=== PATIENT | male | born 1950 | race Caucasian/White ===

== ENCOUNTER 2016-08-03 11:18 | Inpatient (IN) | payer OTHER ==
[2016-08-03 11:25] VITALS: BMI 41.8
[2016-08-03] MEDS ORDERED: FOLIC ACID INJECTION - 1 MG, THIAMINE HCL 100 MG, MULTIVIT INJECTION ADULT 10 ML in SOD... IVPB ONE (11:56)
[2016-08-03] MEDS ORDERED: ONDANSETRON 4 MG/2 ML VIAL IVPB ONE (12:00)
--- NOTE | 2016-08-03 12:19 | PDOC ---
Attending Attestation - Resident Resident Name: Farooq Rasmussen - ED Attending Attestation I have performed the following: I have examined & evaluated the patient, The case was reviewed & discussed with the resident, I agree w/resident's findings & plan - HPI HPI: 08/03/16 12:39 66y M hx of afib presents with abd pain/vomiting x 3 weeks. The pts daugther brought the pt to the ED for evaluation - the pt has been drinking daily for the past 3 weeks (home brewed wine), and pt has also been vomiting daily that was clearish/yellowish - without any blood/coffee ground products. Pt also has been feeling sob and generally weak. Daugther noticed his eyes turning yellowish so brought the pt to the ED. Pt complaings of abd pain that worsens when he vomits. denies any cp. pt states he also has stopped taking his meds since hes tarted drinking. on exam pt has a distended abdomen that is nontender , +jaundice, +3pitting edema in the LE without any tenderness, erythema/ induration. history was taken with the assistance of xu as pt speaks stateless PMD dr. Jauregui differential for the pts symtoms includes liver failure secondary to etoh abuse , vs gb disease, pancreatitis, acs, chf/afib will ck labs ekg cxr will reassess 08/03/16 14:16 labs reviewed noted for significant elevation of LFTs and bilirubin RUQ US negative for obstructive disease will obtain CT at this point, unclear reason for the patients elevated bilirubin +AG of 19 --> will obtain serum ketones and vbg, ?alcoholic ketoacidosiss pts guaiac +, will start on protonix - no signs of anemia will discuss with dr jauregui regarding admission - Physicial Exam PE: 08/06/16 09:15 see above - Medical Decision Making 08/06/16 09:15 see above Heart Score/ECG Review - ECG Impressions Comment:: 08/03/16 17:28 Twelve-lead EKG was performed and reviewed by me. There is normal sinus rhythm with a normal rate. rate of 92 incomplete rbbb LAFB
[2016-08-03 12:54] LABS: MCH 29.2 pg (25.7-33.7); MCHC 30.9 g/dl (32.0-35.9); WHITE BLOOD COUNT 7.4 K/mm3 (4.0-10.0)
[2016-08-03] MEDS ORDERED: ONDANSETRON 4 MG/2 ML VIAL ONE (13:04)
[2016-08-03 13:11] LABS: MEAN CELL VOLUME 94.3 fl (80-96); MEAN PLT VOLUME 9.3 fl (7.5-11.1); PLATELET COUNT 116 K/MM3 (134-434); RDW 14.7 % (11.9-15.9)
[2016-08-03 13:15] LABS: INR 1.36 (0.82-1.09)
--- NOTE | 2016-08-03 13:19 | PDOC ---
History of Present Illness <Ryne Ibrahim - Last Filed: 08/03/16 14:23> - General History Source: Patient, Family Exam Limitations: No Limitations - History of Present Illness Travel History: No Initial Comments: 66 yo M h/o a-fib s/p cardioversion (voluntarily stopped eliquis and cardizem 3 months ago) brought in by family member for acute on chronic abd pain and vomiting x 3 months. Per family member, patient has been binge drinking wine ( total 6 gallons in 3 months) and his last drink was in this AM. He has dull pain located in center of abdomen, 5/10, non-radiating, worse with vomiting, associated with loss of appetite and dark stool. The vomiting started with the drinking and it's been bilious and non-bloody. Denies fever, chills, chest pain , sob, dysuria. <Farooq Rasmussen - Last Filed: 08/03/16 15:11> - General Chief Complaint: Pain Stated Complaint: ABD PAIN, Alcohol abuse Time Seen by Provider: 08/03/16 11:41 Past History <Ryne Ibrahim - Last Filed: 08/03/16 14:23> - Past Medical History Anemia: No Asthma: No Cancer: No Cardiac Disorders: Yes (ATRIAL FIBRILLATION) CVA: No COPD: No CHF: Yes Dementia: No Diabetes: No GI Disorders: No Disorders: No HTN: Yes Hypercholesterolemia: Yes Liver Disease: No Seizures: No Thyroid Disease: No Other medical history: alcohol abuse - Surgical History Abdominal Surgery: No Appendectomy: No Cardiac Surgery: No Cholecystectomy: No Lung Surgery: No Neurologic Surgery: No Orthopedic Surgery: No - Psycho/Social/Smoking Cessation Hx Suicidal Ideation: No Smoking History: Never smoked Have you smoked in the past 12 months: No Information on smoking cessation initiated: No Hx Alcohol Use: Yes (daily) Drug/Substance Use Hx: No Substance Use Type: Alcohol Hx Substance Use Treatment: No <Farooq Rasmussen - Last Filed: 08/03/16 15:11> - Past Medical History Allergies/Adverse Reactions: Allergies Allergy/AdvReac Type Severity Reaction Status Date / Time No Known Allergies Allergy Verified 12/29/13 08:24 Home Medications: Ambulatory Orders Unobtainable [Unobtainable] 08/03/16 Review of Systems - Review of Systems Able to Perform ROS?: Yes (with family member bedsid) Is the patient limited Azeri proficient: Yes Constitutional: Yes: Loss of Appetite. No: Chills, Fever, Weakness Respiratory: No: Cough, Shortness of Breath Cardiac (ROS): No: Chest Pain ABD/GI: Yes: Nausea, Poor Appetite, Vomiting, Tarry Stools : No: Dysuria Neurological: Yes: Dizziness <Farooq Rasmussen - Last Filed: 08/03/16 15:11> *Physical Exam - Vital Signs Last Vital Signs Temp Pulse Resp BP Pulse Ox 98.3 F 104 H 19 146/80 97 08/03/16 11:23 08/03/16 11:23 08/03/16 11:23 08/03/16 11:23 08/03/16 11:23 <Ryne Ibrahim - Last Filed: 08/03/16 14:23> - Vital Signs Last Vital Signs Temp Pulse Resp BP Pulse Ox 98.3 F 104 H 19 146/80 97 08/03/16 11:23 08/03/16 11:23 08/03/16 11:23 08/03/16 11:23 08/03/16 11:23 - Physical Exam General Appearance: Yes: Alcohol on Breath. No: Apparent Distress HEENT: positive: Scleral Icterus (R), Scleral Icterus (L), Pharyngeal Erythema Neck: positive: Trachea midline, Supple Respiratory/Chest: positive: Lungs Clear, Normal Breath Sounds Cardiovascular: positive: Regular Rhythm, S1, S2, Tachycardia. negative: Murmur Gastrointestinal/Abdominal: positive: Protuberent, Distended. negative: Guarding, Rebound, Tenderness Musculoskeletal: positive: Other (no tremor) Neurologic: positive: Fully Oriented, Alert, Other (no tremor observed in out strectched hands) <Farooq Rasmussen - Last Filed: 08/03/16 15:11> ED Treatment Course - LABORATORY CBC & Chemistry Diagram: 08/03/16 12:31 08/03/16 12:31 - ADDITIONAL ORDERS Additional order review: Laboratory Results 08/03/16 08/03/16 08/03/16 13:21 12:31 12:31 INR PTT (Actin FS) Sodium Potassium Chloride Carbon Dioxide Anion Gap BUN Creatinine Creat Clearance w eGFR Random Glucose Calcium Phosphorus Magnesium Total Bilirubin Direct Bilirubin AST ALT Alkaline Phosphatase Creatine Kinase Creatine Kinase Index CK-MB (CK-2) CK-MB (CK-2) Rel Index Cancelled Troponin I Total Protein Albumin Lipase Urine Color Urine Appearance Urine pH Ur Specific [place] Urine Protein Urine Glucose (UA) Urine Ketones Urine Blood Urine Nitrite Urine Bilirubin Urine Urobilinogen Ur Leukocyte Esterase Urine RBC Urine WBC Ur Epithelial Cells Hyaline Casts Urine Mucus Stool Occult Blood Positive Alcohol, Quantitative 8.6 H* 08/03/16 08/03/16 08/03/16 12:31 12:31 12:31 INR 1.36 H PTT (Actin FS) Sodium 132 L Potassium 4.9 Chloride 91 L Carbon Dioxide 22 Anion Gap 19 H BUN 8 Creatinine 1.1 Creat Clearance w eGFR > 60 Random Glucose 102 Calcium 8.1 L Phosphorus 1.2 L Magnesium 2.3 Total Bilirubin 18.1 H* Direct Bilirubin 14.1 H* AST 539 H ALT 336 H Alkaline Phosphatase 703 H Creatine Kinase 400 H Creatine Kinase Index 0.9 CK-MB (CK-2) 3.715 H CK-MB (CK-2) Rel Index Troponin I 0.02 Total Protein 5.6 L Albumin 2.1 L Lipase 205 Urine Color Urine Appearance Urine pH Ur Specific [place] Urine Protein Urine Glucose (UA) Urine Ketones Urine Blood Urine Nitrite Urine Bilirubin Urine Urobilinogen Ur Leukocyte Esterase Urine RBC Urine WBC Ur Epithelial Cells Hyaline Casts Urine Mucus Stool Occult Blood Alcohol, Quantitative 08/03/16 08/03/16 12:31 12:31 INR PTT (Actin FS) 33.2 Sodium Potassium Chloride Carbon Dioxide Anion Gap BUN Creatinine Creat Clearance w eGFR Random Glucose Calcium Phosphorus Magnesium Total Bilirubin Direct Bilirubin AST ALT Alkaline Phosphatase Creatine Kinase Creatine Kinase Index CK-MB (CK-2) CK-MB (CK-2) Rel Index Troponin I Total Protein Albumin Lipase Urine Color Yasmine Urine Appearance Clear Urine pH 5.0 Ur Specific [place] 1.030 Urine Protein 2+ H Urine Glucose (UA) 1+ H Urine Ketones 1+ H Urine Blood 1+ H Urine Nitrite Negative Urine Bilirubin 4.0 Urine Urobilinogen 4.0 e.u/dl Ur Leukocyte Esterase Negative Urine RBC 20 Urine WBC 5 Ur Epithelial Cells Rare Hyaline Casts 8 Urine Mucus Many Stool Occult Blood Alcohol, Quantitative 08/03/16 12:31 RBC 4.65 MCV 94.3 MCHC 30.9 L RDW 14.7 MPV 9.3 Neutrophils % Y Lymphocytes % Y - RADIOLOGY Radiology Studies Ordered: Category Date Time Status ABDOMEN & PELVIS CT WITH CONTR [CT] Stat CT Scan 08/03/16 14:11 Ordered CHEST X-RAY PORTABLE* [RAD] Stat Radiology 08/03/16 12:23 Taken ABDOMEN US -LIMITED [US] Stat Ultrasound 08/03/16 12:25 Taken - Medications Given in the ED: ED Medications Discontinued Medications Generic Name Dose Route Start Last Admin Trade Name Juan PRN Reason Stop Dose Admin Ondansetron HCl 4 mg 08/03/16 12:00 08/03/16 13:19 Zofran Injection IVPB 08/03/16 12:01 4 mg ONCE ONE Administration <Ryne Ibrahim - Last Filed: 08/03/16 14:23> - LABORATORY CBC & Chemistry Diagram: 08/03/16 12:31 08/03/16 12:31 - ADDITIONAL ORDERS Additional order review: Laboratory Results 08/03/16 12:31 PTT (Actin FS) 33.2 08/03/16 12:31 RBC 4.65 MCV 94.3 MCHC 30.9 L RDW 14.7 MPV 9.3 Neutrophils % Y Lymphocytes % Y <Farooq Rasmussen - Last Filed: 08/03/16 15:11> Medical Decision Making - Medical Decision Making 08/03/16 13:30 66 yo M h/o a-fib not on AC and rate control admitted to the ED for abd pain and vomiting 2/2 alcohol abuse. Will obtain lab work, stool OB, UA, U/S of liver , lipase 08/03/16 15:09 Lab work is remarkable for positive stool OB, elevated LFT and bilirubins ( direct and total). U/S liver shows fatty infiltrate but no obstruction. Case discussed with Dr. Haney and will admit the patient under his service and requested Dr. Reaves for GI consult. <Farooq Rasmussen - Last Filed: 08/03/16 15:11> *DC/Admit/Observation/Transfer - Discharge Dispostion Admit: Yes <Ryne Ibrahim - Last Filed: 08/03/16 14:23> - Discharge Dispostion Admit: Yes <Farooq Rasmussen - Last Filed: 08/03/16 15:11> Diagnosis at time of Disposition: Elevated bilirubin, Transaminitis GIB (gastrointestinal bleeding) Qualifiers: GI bleed type/associated pathology: melena Qualified Code(s): K92.1 - Melena - Referrals Referrals: Addy Haney MD [Primary Care Provider] -
[2016-08-03 13:24] LABS: ALBUMIN 2.1 g/dl (3.4-5.0); ANION GAP 19 (8-16); CALCIUM 8.1 mg/dL (8.5-10.1); CO2 22 mmol/L (21-32); COCKROFT - GAULT 118.12; CREATININE 1.1 mg/dL (0.7-1.3); GLUCOSE,RANDOM 102 mg/dL (74-106); MAGNESIUM 2.3 mg/dL (1.8-2.4); PHOSPHOROUS 1.2 mg/dL (2.5-4.9); TOT PROT 5.6 g/dl (6.4-8.2)
[2016-08-03 13:32] LABS: ALK PHOS 703 U/L (45-117); TROPONIN I 0.02 ng/ml (0.00-0.05)
[2016-08-03 13:34] LABS: BILIRUBIN,TOTAL 18.1 mg/dL (0.2-1.0)
[2016-08-03 13:35] LABS: SGOT/AST 539 U/L (15-37)
[2016-08-03 13:37] LABS: SGPT/ALT 336 U/L (12-78)
[2016-08-03 13:42] LABS: URINE APPEARANCE CLEAR; URINE COLOR AMBER; URINE GLUCOSE (UA) 1+ (NEGATIVE); URINE KETONE 1+ (NEGATIVE); URINE LEUK ESTERASE NEGATIVE (NEGATIVE); URINE NITRITE NEGATIVE (NEGATIVE); URINE UROBILINOGEN 4.0 E.U/dl E.U./dl (0.2-1.0)
[2016-08-03 13:54] LABS: URINE BLOOD 1+ (NEGATIVE); URINE PROTEIN 2+ (NEGATIVE)
[2016-08-03 13:57] LABS: URINE HYALINE CAST 8 /lpf; URINE MUCUS MANY; URINE RBC 20 /hpf (0-3); URINE WBC 5 /hpf (3-5)
[2016-08-03] MEDS ORDERED: PANTOPRAZOLE SODIUM 80 MG in SODIUM CHLORIDE 100 ML IVPB ONE (14:06)
[2016-08-03] MEDS ORDERED: PANTOPRAZOLE SODIUM 80 MG in SODIUM CHLORIDE 100 ML IVPB SCH (14:15)
[2016-08-03] MEDS ORDERED: PANTOPRAZOLE SODIUM 40 MG VIAL ONE (14:45)
[2016-08-03 14:49] LABS: PLATELET ESTIMATE DECREASED (NORMAL)
[2016-08-03 15:26] LABS: VENOUS BLOOD GAS HCO3 27.7 meq/L (19-25)
[2016-08-03 15:27] LABS: VENOUS PH 7.45 (7.32-7.42)
--- NOTE | 2016-08-03 15:41 | HP ---
Admitting History and Physical - Admission Chief Complaint: 66 y.o M presented to ER [facility] today with c/o abdominal mdistention, dull pain, vomiting and dark stool. According to patient and his daughter he was binge drinking for 4 weeks mostly home made red wine and vodke the last week. He stopped using all his meds 3 weeks ago. History of Present Illness: Paroxysmal Afib, last seen in the office 06/18/15 when he was in [place]. Binge drinking in the past. HTN. LV CHF-mostly diastolic. Obesity. Kidney stones. 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 No: Cancer Hepatobiliary: Yes: Other (Steatohepatitis) Psych: No: Bipolar, Panic, Psychosis, Schizophrenia Musculoskeletal: No: Bursitis Rheumatology: No: Fibromyalgia, Lupus, Rheumatoid Arthritis Endocrine: No: Diabetes Insipidus, Diabetes Mellitus, Hyperparathyroidism Dermatology: No: Basal Cell - Smoking History Smoking history: Never smoked Have you smoked in the past 12 months: No - Alcohol/Substance Use Hx Alcohol Use: Yes (daily) - Social History Usual Living Arrangement: Yes: With Child History of Recent Travel: No Home Medications - Allergies Allergies/Adverse Reactions: Allergies Allergy/AdvReac Type Severity Reaction Status Date / Time No Known Allergies Allergy Verified 12/29/13 08:24 - Home Medications Home Medications: Ambulatory Orders Unobtainable [Unobtainable] 08/03/16 Home Medications (free text): Cardizem 180 QD. Lasix 40 mg QD. KDur 20 Meq QD. Toprol XL 25 mg QD. Pravastatin 10 mg QD. Eliquis 5 mg BID Family Disease History - Family Disease History Family History: Unremarkable Other Family History: from liver illness and ETOH Review of Systems - Review of Systems Constitutional: reports: Loss of Appetite, Malaise. denies: Fever, Lethargy Eyes: denies: Blind Spots, Double Vision, Eye Pain HENT: denies: Difficult Swallowing, Epistaxis, Nasal Congestion Neck: denies: Lumps, Pain on Movement, Stiffness Cardiovascular: reports: Edema, Shortness of Breath. denies: Chest Pain, Palpitations Respiratory: reports: Exercise Intolerance, Snoring. denies: Cough, Wheezing Gastrointestinal: reports: Abdominal Pain, Bloating, Melena, Vomiting Genitourinary: denies: Discharge, Dysuria, Hematuria Breasts: reports: No Symptoms Reported Musculoskeletal: denies: Decreased ROM, Joint Pain Integumentary: reports: No Symptoms, Other (Jaundice) Neurological: reports: No Symptoms. denies: Change in LOC, Change in Speech, Confusion Endocrine: denies: Excessive Sweating, Flushing Hematology/Lymphatic: reports: No Symptoms Psychiatric: reports: No Symptoms Physical Examination Vital Signs: Vital Signs Temperature 98.3 F 08/03/16 11:23 Pulse Rate 104 H 08/03/16 11:23 Respiratory Rate 19 08/03/16 11:23 Blood Pressure 146/80 08/03/16 11:23 O2 Sat by Pulse Oximetry (%) 97 08/03/16 11:23 Constitutional: Yes: Anxious, Mild Distress Eyes: Yes: Sclera Icterus, Tearing HENT: Yes: Atraumatic, Normocephalic. No: Drooling, Epistaxis Neck: Yes: Supple, Trachea Midline. No: Decreased ROM, Lymphadenopathy, Tenderness, Thyromegaly Cardiovascular: Yes: Regular Rate and Rhythm, Tachycardia, S1, S2. No: JVD, Murmur, Rub Respiratory: Yes: Regular, CTA Bilaterally Gastrointestinal: Yes: Normal Bowel Sounds, Soft, Abdomen, Obese, Hepatomegaly. No: Ascites ...Rectal Exam: Yes: Other ( PER ER Guaiac positive) Renal/: No: Anuria, Bladder Distention Breast(s): Yes: WNL, Left, Right Musculoskeletal: No: Joint Stiffness, Joint Swelling Extremities: No: Amputation, Calf Tenderness, Cold, Cyanosis Edema: Yes Edema: LLE: Trace, RLE: Trace Integumentary: Yes: WNL Neurological: Yes: Alert, Oriented, Cran Nerves II-XII Intact. No: Aphasia, Asterixis, Ataxia, Dysarthria, Seizure ...Motor Strength: WNL Psychiatric: Yes: WNL. No: Agitated, Suicidal Ideation Imaging - Results Chest X-ray: Report Reviewed Cat Scan: Image Reviewed (with Dr Antonio) EKG: Image Reviewed Problem List - Problems (1) GIB (gastrointestinal bleeding) Assessment/Plan: R/O PUD, R/o gastropathy, r/o varices. Protonix IV GI consult Code(s): K92.2 - GASTROINTESTINAL HEMORRHAGE, UNSPECIFIED Qualifiers: GI bleed type/associated pathology: melena Qualified Code(s): K92.1 - Melena (2) Acute alcoholic hepatitis Assessment/Plan: Elevated AST >>ALT=1.5-2:1 Low PLTS Elevated INR Direct Bili R/o superimposed viral hepatitis or other ethiologies. Code(s): K70.10 - ALCOHOLIC HEPATITIS WITHOUT ASCITES (3) Paroxysmal atrial fibrillation Assessment/Plan: Hold OFF on A/C now due to GI bleed BAB for rate control Code(s): I48.0 - PAROXYSMAL ATRIAL FIBRILLATION (4) CHF (congestive heart failure), NYHA class II Assessment/Plan: ECHO Follow weights O2NC Will hold off on diuretics now Code(s): I50.9 - HEART FAILURE, UNSPECIFIED Qualifiers: Congestive heart failure type: diastolic (5) Alcohol abuse Assessment/Plan: Thiamin ,B6, observe for DT , Code(s): F10.10 - ALCOHOL ABUSE, UNCOMPLICATED
[2016-08-03] MEDS ORDERED: chlordiazePOXIDE HCL 25 MG CAPSULE PO SCH (17:00)
[2016-08-03] MEDS: DEXTROSE 5%-1/3 NS - 500 ML IV SCH (17:29)
--- NOTE | 2016-08-03 18:29 | CON.GI ---
Consult Consult Specialty:: GI Referred by:: Dr. 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 He had multiple episodes of vomiting and he has been "drinking non stop for the last 3 weeks". He drinks wine and mentions 5 gallons of it, but does not give me the time frame in which he drank them. He gives a binge drinking history from at least 2007 when his from alcohol abuse complications. Hi sister from alcoholic complications as well. He currently denies abdominal pain. He was noted to have marked liver chemistry abnormalities. His liver was normal in size on the CT scan however fatty liver was noted with normal appearing bile ducts. Abd US revealed hepatomegaly and fatty liver with normal appearing bile ducts. Patient guaiac negative from specimen sent from ER however no melena reported in ER or at home. 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 No: Cancer Hepatobiliary: Yes: Other (Steatohepatitis) Psych: Yes: Addictions (alcohol). No: Bipolar, Panic, Psychosis, Schizophrenia Musculoskeletal: No: Bursitis Rheumatology: No: Fibromyalgia, Lupus, Rheumatoid Arthritis Endocrine: No: Diabetes Insipidus, Diabetes Mellitus, Hyperparathyroidism Dermatology: No: Basal Cell - Past Surgical History Additional Surgical History: "heart surgery 2012" - Alcohol/Substance Use Hx Alcohol Use: Yes (daily) History of Substance Use: reports: None Date of Last Use: 08/02/16 - Smoking History Smoking history: Never smoked Have you smoked in the past 12 months: No - Social History History of Recent Travel: No Home Medications - Allergies Allergies/Adverse Reactions: Allergies Allergy/AdvReac Type Severity Reaction Status Date / Time No Known Allergies Allergy Verified 12/29/13 08:24 - Home Medications Home Medications: Ambulatory Orders Unobtainable [Unobtainable] 08/03/16 Family Disease History - Family Disease History Family Disease History: Other: Father ( 72: throat cancer), Mother ( 83 CVA), Brother (Alive: healthy), Sister ( 55: alcoholic liver disease), Daughter (healthy) Review of Systems - Review of Systems Constitutional: denies: Chills, Fever, Unintentional Wgt. Loss Cardiovascular: denies: Chest Pain Respiratory: denies: SOB Gastrointestinal: reports: Abdominal Pain. denies: Constipation, Diarrhea, Melena, Rectal Bleeding Physical Exam-GI Vital Signs: Vital Signs Temperature 98 F 08/03/16 16:39 Pulse Rate 87 08/03/16 16:39 Respiratory Rate 20 08/03/16 16:39 Blood Pressure 131/69 08/03/16 16:39 O2 Sat by Pulse Oximetry (%) 94 L 08/03/16 16:39 Constitutional: Yes: Calm Eyes: Yes: Sclera Icterus Cardiovascular: Yes: Regular Rate and Rhythm. No: Murmur Respiratory: Yes: CTA Bilaterally Gastrointestinal Inspection: No: Distention, Scars ...Auscultate: Yes: Normoactive Bowel Sounds ...Palpate: Yes: Hepatomegaly (body habitus makes assessment of hepatomegaly difficult). No: Tenderness ...Percussion: No: Tympanitic ...Rectal Exam: Yes: Other (light parikh stool, no blood/melena 2+ prostate) Edema: Yes Edema: LLE: 1+, RLE: 1+ Neurological: Yes: Alert, Oriented. No: Asterixis Labs: INR, PTT INR 1.36 (0.82-1.09) H 08/03/16 12:31 CBC, BMP 08/03/16 12:31 08/03/16 12:31 Hepatic Panel Total Bilirubin 18.1 mg/dL (0.2-1.0) H* 08/03/16 12:31 Direct Bilirubin 14.1 mg/dL (0.0-0.2) H* 08/03/16 12:31 AST 539 U/L (15-37) H 08/03/16 12:31 ALT 336 U/L (12-78) H 08/03/16 12:31 Alkaline Phosphatase 703 U/L (45-117) H 08/03/16 12:31 Albumin 2.1 g/dl (3.4-5.0) L 08/03/16 12:31 Laboratory Tests 08/03/16 12:31 Alcohol, Quantitative 8.6 H* Imaging - Results Cat Scan: Report Reviewed, Image Reviewed Ultrasound: Report Reviewed Problem List - Problems (1) Acute alcoholic hepatitis Assessment/Plan: Suspected alcoholic hepatitis. No recent LFT's to compare Hepatic discriminant function: 32. On the cusp in terms of prednisone therapy and will exclude alternate etiologies of his abdominal pain and LFT abnormality. Ordered MRCP, hepatitis A/B/C serologies Keep NPO after midnight except meds. I explained to Mr. Del Real that if there is enough suspicion for a stone lodged in his bile duct that he may need ERCP to extract it Withdrawal and aspiration precautions Monitor daily LFTs I stressed the need for complete alcohol abstinence Code(s): K70.10 - ALCOHOLIC HEPATITIS WITHOUT ASCITES
[2016-08-03 20:46] LABS: MCH 29.7 pg (25.7-33.7); MCHC 31.4 g/dl (32.0-35.9); MEAN CELL VOLUME 94.4 fl (80-96); MEAN PLT VOLUME 9.4 fl (7.5-11.1); PLATELET COUNT 118 K/MM3 (134-434); RDW 14.7 % (11.9-15.9); WHITE BLOOD COUNT 6.5 K/mm3 (4.0-10.0)
[2016-08-03 20:59] LABS: INR 1.36 (0.82-1.09)
[2016-08-03] MEDS: METOPROLOL TARTRATE 25 MG TABLET (FP) PO SCH (21:45)
[2016-08-04] MEDS: DEXTROSE 5%-1/3 NS - 500 ML IV SCH ×2 (05:54→11:19)
--- NOTE | 2016-08-04 07:08 | PN ---
Progress Note, Physician Chief Complaint: Awake, alert, no withdrawal symptoms, no vomiting. Burning on urination, dark urine. BM dark Abdominal dyscofort. GI consult noted. Advised MRCP. Given borderline hepatic discriminant-no steroids started. History of Present Illness: Paroxysmal Afib, last seen in the office 06/18/15 when he was in [place]. Binge drinking in the past. HTN. LV CHF-mostly diastolic. Obesity. Kidney stones. - Current Medication List Current Medications: Active Medications Dextrose/Sodium Chloride (D5-1/3ns -) 500 mls @ 42 mls/hr IV ASDIR [facility] Last Admin: 08/04/16 05:54 Dose: 42 mls/hr Metoprolol Tartrate (Lopressor -) 25 mg PO BID [facility] Last Admin: 08/03/16 21:45 Dose: 25 mg - Objective Vital Signs: Vital Signs Temperature 98.7 F 08/04/16 06:00 Pulse Rate 82 08/04/16 06:00 Respiratory Rate 20 08/04/16 06:00 Blood Pressure 126/77 08/04/16 06:00 O2 Sat by Pulse Oximetry (%) 96 08/03/16 21:00 Constitutional: Yes: Anxious, Moderate Distress Eyes: Yes: Sclera Icterus, Tearing HENT: Yes: Normocephalic. No: Drooling, Epistaxis Neck: Yes: Trachea Midline. No: Decreased ROM, Lymphadenopathy, Rigid, Tenderness, Thyromegaly Cardiovascular: Yes: Regular Rate and Rhythm, S1, S2. No: Bradycardia, Bruit, JVD, Gallop, Rub Respiratory: Yes: Regular, CTA Bilaterally Gastrointestinal: Yes: Soft, Abdomen, Obese, Tenderness. No: Ascites, Palpable Mass ...Rectal Exam: Yes: Deferred Genitourinary: No: Anuria, Bladder Distention, CVA Tenderness - Left, CVA Tenderness - Right Breast(s): Yes: WNL Extremities: Yes: WNL Edema: LLE: Trace, RLE: Trace Integumentary: Yes: WNL Neurological: Yes: Alert, Oriented. No: Aphasia, Asterixis, Confusion, Dysarthria ...Motor Strength: WNL Psychiatric: Yes: WNL Labs: CBC, BMP 08/03/16 20:00 INR, PTT INR 1.36 (0.82-1.09) H 08/03/16 20:00 Laboratory Results - last 24 hr 08/03/16 08/03/16 08/03/16 12:31 12:31 12:31 WBC 7.4 RBC 4.65 Hgb 13.6 Hct 43.9 MCV 94.3 MCHC 30.9 L RDW 14.7 Plt Count 116 L MPV 9.3 Neutrophils % 82.0 Lymphocytes % 10.0 Monocytes % 7.0 Promyelocytes 1 Differential Comment Manual diff done Platelet Estimate Decreased INR PTT (Actin FS) 33.2 VBG pH POC VBG pCO2 POC VBG pO2 Mixed VBG HCO3 Sodium Potassium Chloride Carbon Dioxide Anion Gap BUN Creatinine Creat Clearance w eGFR Random Glucose Calcium Phosphorus Magnesium Total Bilirubin Direct Bilirubin AST ALT Alkaline Phosphatase Creatine Kinase Creatine Kinase Index CK-MB (CK-2) CK-MB (CK-2) Rel Index Troponin I Total Protein Albumin Lipase Vitamin B12 Serum Folate Urine Color Yasmine Urine Appearance Clear Urine pH 5.0 Ur Specific [place] 1.030 Urine Protein 2+ H Urine Glucose (UA) 1+ H Urine Ketones 1+ H Urine Blood 1+ H Urine Nitrite Negative Urine Bilirubin 4.0 Urine Urobilinogen 4.0 e.u/dl Ur Leukocyte Esterase Negative Urine RBC 20 Urine WBC 5 Ur Epithelial Cells Rare Hyaline Casts 8 Urine Mucus Many Stool Occult Blood Alcohol, Quantitative Acetone, Qual 08/03/16 08/03/16 08/03/16 12:31 12:31 12:31 WBC RBC Hgb Hct MCV MCHC RDW Plt Count MPV Neutrophils % Lymphocytes % Monocytes % Promyelocytes Differential Comment Platelet Estimate INR 1.36 H PTT (Actin FS) VBG pH POC VBG pCO2 POC VBG pO2 Mixed VBG HCO3 Sodium 132 L Potassium 4.9 Chloride 91 L Carbon Dioxide 22 Anion Gap 19 H BUN 8 Creatinine 1.1 Creat Clearance w eGFR > 60 Random Glucose 102 Calcium 8.1 L Phosphorus 1.2 L Magnesium 2.3 Total Bilirubin 18.1 H* Direct Bilirubin 14.1 H* AST 539 H ALT 336 H Alkaline Phosphatase 703 H Creatine Kinase 400 H Creatine Kinase Index 0.9 CK-MB (CK-2) 3.715 H CK-MB (CK-2) Rel Index Troponin I 0.02 Total Protein 5.6 L Albumin 2.1 L Lipase 205 Vitamin B12 Serum Folate Urine Color Urine Appearance Urine pH Ur Specific [place] Urine Protein Urine Glucose (UA) Urine Ketones Urine Blood Urine Nitrite Urine Bilirubin Urine Urobilinogen Ur Leukocyte Esterase Urine RBC Urine WBC Ur Epithelial Cells Hyaline Casts Urine Mucus Stool Occult Blood Alcohol, Quantitative Acetone, Qual 08/03/16 08/03/16 08/03/16 12:31 12:31 12:45 WBC RBC Hgb Hct MCV MCHC RDW Plt Count MPV Neutrophils % Lymphocytes % Monocytes % Promyelocytes Differential Comment Platelet Estimate INR PTT (Actin FS) VBG pH POC VBG pCO2 POC VBG pO2 Mixed VBG HCO3 Sodium Potassium Chloride Carbon Dioxide Anion Gap BUN Creatinine Creat Clearance w eGFR Random Glucose Calcium Phosphorus Magnesium Total Bilirubin Direct Bilirubin AST ALT Alkaline Phosphatase Creatine Kinase Creatine Kinase Index CK-MB (CK-2) CK-MB (CK-2) Rel Index Cancelled Troponin I Total Protein Albumin Lipase Vitamin B12 1075 H Serum Folate 8 Urine Color Urine Appearance Urine pH Ur Specific [place] Urine Protein Urine Glucose (UA) Urine Ketones Urine Blood Urine Nitrite Urine Bilirubin Urine Urobilinogen Ur Leukocyte Esterase Urine RBC Urine WBC Ur Epithelial Cells Hyaline Casts Urine Mucus Stool Occult Blood Alcohol, Quantitative 8.6 H* Acetone, Qual 08/03/16 08/03/16 08/03/16 13:21 14:55 15:15 WBC RBC Hgb Hct MCV MCHC RDW Plt Count MPV Neutrophils % Lymphocytes % Monocytes % Promyelocytes Differential Comment Platelet Estimate INR PTT (Actin FS) VBG pH 7.45 H POC VBG pCO2 40.1 POC VBG pO2 43.3 Mixed VBG HCO3 27.7 H Sodium Potassium Chloride Carbon Dioxide Anion Gap BUN Creatinine Creat Clearance w eGFR Random Glucose Calcium Phosphorus Magnesium Total Bilirubin Direct Bilirubin AST ALT Alkaline Phosphatase Creatine Kinase Creatine Kinase Index CK-MB (CK-2) CK-MB (CK-2) Rel Index Troponin I Total Protein Albumin Lipase Vitamin B12 Serum Folate Urine Color Urine Appearance Urine pH Ur Specific [place] Urine Protein Urine Glucose (UA) Urine Ketones Urine Blood Urine Nitrite Urine Bilirubin Urine Urobilinogen Ur Leukocyte Esterase Urine RBC Urine WBC Ur Epithelial Cells Hyaline Casts Urine Mucus Stool Occult Blood Positive Alcohol, Quantitative Acetone, Qual Negative 08/03/16 08/03/16 20:00 20:00 WBC 6.5 RBC 4.07 Hgb 12.1 D Hct 38.4 MCV 94.4 MCHC 31.4 L RDW 14.7 Plt Count 118 L MPV 9.4 Neutrophils % Lymphocytes % Monocytes % Promyelocytes Differential Comment Platelet Estimate INR 1.36 H PTT (Actin FS) VBG pH POC VBG pCO2 POC VBG pO2 Mixed VBG HCO3 Sodium Potassium Chloride Carbon Dioxide Anion Gap BUN Creatinine Creat Clearance w eGFR Random Glucose Calcium Phosphorus Magnesium Total Bilirubin Direct Bilirubin AST ALT Alkaline Phosphatase Creatine Kinase Creatine Kinase Index CK-MB (CK-2) CK-MB (CK-2) Rel Index Troponin I Total Protein Albumin Lipase Vitamin B12 Serum Folate Urine Color Urine Appearance Urine pH Ur Specific [place] Urine Protein Urine Glucose (UA) Urine Ketones Urine Blood Urine Nitrite Urine Bilirubin Urine Urobilinogen Ur Leukocyte Esterase Urine RBC Urine WBC Ur Epithelial Cells Hyaline Casts Urine Mucus Stool Occult Blood Alcohol, Quantitative Acetone, Qual - ....Imaging Chest X-ray: Report Reviewed Cat Scan: Image Reviewed EKG: Image Reviewed Problem List - Problems (1) GIB (gastrointestinal bleeding) Assessment/Plan: Acute GI bleed R/O PUD, R/o gastropathy, r/o varices. Protonix IV GI consult Code(s): K92.2 - GASTROINTESTINAL HEMORRHAGE, UNSPECIFIED Qualifiers: GI bleed type/associated pathology: melena Qualified Code(s): K92.1 - Melena (2) Acute alcoholic hepatitis Assessment/Plan: Elevated AST >>ALT=1.5-2:1 Low PLTS Elevated INR Direct Bili R/o superimposed viral hepatitis or other ethiologies. R/o mechanical jaundice NPO MRCP Code(s): K70.10 - ALCOHOLIC HEPATITIS WITHOUT ASCITES (3) Paroxysmal atrial fibrillation Assessment/Plan: Hold OFF on A/C now due to GI bleed BAB for rate control Code(s): I48.0 - PAROXYSMAL ATRIAL FIBRILLATION (4) CHF (congestive heart failure), NYHA class II Assessment/Plan: ECHO Follow weights O2NC Will hold off on diuretics now Code(s): I50.9 - HEART FAILURE, UNSPECIFIED Qualifiers: Congestive heart failure type: diastolic (5) Alcohol abuse Assessment/Plan: Thiamin ,B6, observe for DT , Code(s): F10.10 - ALCOHOL ABUSE, UNCOMPLICATED
[2016-08-04 08:06] LABS: BILIRUBIN,TOTAL 13.2 mg/dL (0.2-1.0)
[2016-08-04 09:31] LABS: BILIRUBIN,DIRECT 10.6 mg/dL (0.0-0.2)
[2016-08-04 09:32] LABS: MCH 29.6 pg (25.7-33.7); MCHC 31.5 g/dl (32.0-35.9); MEAN PLT VOLUME 8.6 fl (7.5-11.1); PLATELET COUNT 122 K/MM3 (134-434); RDW 14.6 % (11.9-15.9); WHITE BLOOD COUNT 6.1 K/mm3 (4.0-10.0)
[2016-08-04 09:59] LABS: ANION GAP 10 (8-16); BILIRUBIN,TOTAL 12.9 mg/dL (0.2-1.0); CALCIUM 7.7 mg/dL (8.5-10.1); CO2 30 mmol/L (21-32); COCKROFT - GAULT 144.37; CREATININE 0.9 mg/dL (0.7-1.3); GLUCOSE,RANDOM 110 mg/dL (74-106); SGPT/ALT 252 U/L (12-78)
[2016-08-04 10:00] LABS: ALK PHOS 543 U/L (45-117)
[2016-08-04 10:13] LABS: MAGNESIUM 2.4 mg/dL (1.8-2.4); SGOT/AST 333 U/L (15-37)
[2016-08-04] MEDS: METOPROLOL TARTRATE 25 MG TABLET (FP) PO SCH ×2 (11:19→21:58)
[2016-08-04 11:54] LABS: URINE APPEARANCE CLEAR; URINE COLOR AMBER; URINE GLUCOSE (UA) NEGATIVE (NEGATIVE); URINE KETONE TRACE (NEGATIVE); URINE LEUK ESTERASE NEGATIVE (NEGATIVE); URINE NITRITE NEGATIVE (NEGATIVE); URINE UROBILINOGEN 4.0 E.U/dl E.U./dl (0.2-1.0)
[2016-08-04 12:19] LABS: PLATELET ESTIMATE DECREASED (NORMAL)
[2016-08-04 12:28] LABS: URINE BLOOD 1+ (NEGATIVE); URINE PROTEIN 1+ (NEGATIVE)
[2016-08-04 12:37] LABS: URINE BACTERIA RARE /hpf (NONE SEEN); URINE MUCUS RARE; URINE RBC 1 /hpf (0-3); URINE WBC 1 /hpf (3-5)
[2016-08-04] MEDS ORDERED: POTASSIUM PHOSPHATE 30 MM in DEXTROSE 5%-WATER - 500 ML IVPB ONE (14:00)
[2016-08-04] MEDS: HYDROmorphone HCL CARPU-JECT 1 MG/1 ML DISP.SYRIN IVPB PRN ×2 (14:52→22:18)
[2016-08-04 18:32] LABS: INR 1.28 (0.82-1.09); PROTHROMBIN TIME (PATIENT) 14.1 SEC (9.98-11.88)
--- NOTE | 2016-08-04 19:09 | PN ---
GI Progress Note Subjective: No acute events No abdominal pain/vomiting Does not fit in MRI machine States having some pain in LLQ - Objective Vital Signs: Vital Signs Temperature 97.7 F 08/04/16 18:00 Pulse Rate 88 08/04/16 18:00 Respiratory Rate 20 08/04/16 18:00 Blood Pressure 145/89 08/04/16 18:00 O2 Sat by Pulse Oximetry (%) 96 08/04/16 09:00 Constitutional: Calm Eyes: Yes: Sclera Icterus Cardiovascular: Yes: Regular Rate and Rhythm. No: Murmur Respiratory: Yes: CTA Bilaterally Gastrointestinal Inspection: No: Distention ...Auscultate: Yes: Normoactive Bowel Sounds Edema: Yes Neurological: Yes: Alert. No: Asterixis Psychiatric: No: Agitated Labs: CBC, BMP 08/04/16 09:15 08/04/16 09:15 INR, PTT INR 1.28 (0.82-1.09) H 08/04/16 18:11 Hepatic Panel Total Bilirubin 12.9 mg/dL (0.2-1.0) H 08/04/16 09:15 Direct Bilirubin 10.6 mg/dL (0.0-0.2) H* 08/04/16 06:00 AST 333 U/L (15-37) H 08/04/16 09:15 ALT 252 U/L (12-78) H 08/04/16 09:15 Alkaline Phosphatase 543 U/L (45-117) H 08/04/16 09:15 Albumin 2.0 g/dl (3.4-5.0) L 08/04/16 09:15 Problem List - Problems (1) Acute alcoholic hepatitis Assessment/Plan: Some improvement on today's labs Monitor LFT's / coags Advancing diet MRCP not feasible. Given lack of dilated biliary tract with markedly elevated bilirubin less likely biliary obstruction. Alc hep fitting clinical picture Code(s): K70.10 - ALCOHOLIC HEPATITIS WITHOUT ASCITES
[2016-08-05] MEDS: DEXTROSE 5%-1/3 NS - 500 ML IV SCH ×2 (06:43→22:02)
[2016-08-05 07:41] LABS: MCH 30.3 pg (25.7-33.7); MCHC 31.9 g/dl (32.0-35.9); MEAN CELL VOLUME 94.9 fl (80-96); MEAN PLT VOLUME 8.4 fl (7.5-11.1); PLATELET COUNT 152 K/MM3 (134-434); RDW 15.3 % (11.9-15.9); WHITE BLOOD COUNT 5.8 K/mm3 (4.0-10.0)
--- NOTE | 2016-08-05 07:56 | PN ---
Progress Note, Physician Chief Complaint: C/o left low back pain. History of Present Illness: Paroxysmal Afib, last seen in the office 06/18/15 when he was in [place]. Binge drinking in the past. HTN. LV CHF-mostly diastolic. Obesity. Kidney stones. - Current Medication List Current Medications: Active Medications Hydromorphone HCl (Dilaudid Injection -) 0.5 mg IVPB Q6H PRN PRN Reason: PAIN LEVEL GREATER THAN 5 Last Admin: 08/04/16 22:18 Dose: 0.5 mg Dextrose/Sodium Chloride (D5-1/3ns -) 500 mls @ 100 mls/hr IV ASDIR [facility] Last Admin: 08/05/16 06:43 Dose: 100 mls/hr Metoprolol Tartrate (Lopressor -) 25 mg PO BID [facility] Last Admin: 08/04/16 21:58 Dose: Not Given - Objective Vital Signs: Vital Signs Temperature 97.4 F L 08/05/16 05:39 Pulse Rate 92 H 08/05/16 05:39 Respiratory Rate 20 08/05/16 05:39 Blood Pressure 119/48 08/05/16 05:39 O2 Sat by Pulse Oximetry (%) 96 08/04/16 21:00 Constitutional: Yes: Anxious, Moderate Distress Eyes: Yes: Sclera Icterus HENT: Yes: Normocephalic. No: Drooling Neck: Yes: Supple, Trachea Midline Cardiovascular: Yes: Regular Rate and Rhythm, Other. No: Bradycardia, Tachycardia Respiratory: Yes: Regular Gastrointestinal: Yes: Normal Bowel Sounds, Soft, Abdomen, Obese. No: Ascites, Pulsatile Mass, Tenderness ...Rectal Exam: Yes: Deferred Genitourinary: No: Anuria, Bladder Distention Breast(s): Yes: WNL Musculoskeletal: Yes: WNL Extremities: Yes: WNL Edema: No Integumentary: Yes: WNL Neurological: Yes: Alert, Oriented ...Motor Strength: WNL Psychiatric: Yes: WNL Labs: INR, PTT INR 1.28 (0.82-1.09) H 08/04/16 18:11 Laboratory Results - last 24 hr 08/03/16 08/04/16 08/04/16 12:45 06:00 09:15 WBC 6.1 RBC 4.21 Hgb 12.5 Hct 39.5 MCV 94.0 MCHC 31.5 L RDW 14.6 Plt Count 122 L MPV 8.6 Neutrophils % 78.0 Lymphocytes % 13.0 D Monocytes % 7.0 Basophils % 1.0 Myelocytes 1 Differential Comment Manual diff done Platelet Estimate Decreased INR Sodium Potassium Chloride Carbon Dioxide Anion Gap BUN Creatinine Creat Clearance w eGFR Random Glucose Hemoglobin A1c % Calcium Magnesium Total Bilirubin 13.2 H D Direct Bilirubin 10.6 H* AST 342 H D ALT 258 H D Alkaline Phosphatase 555 H D Total Protein 5.0 L Albumin 2.0 L Urine Color Urine Appearance Urine pH Ur Specific [place] Urine Protein Urine Glucose (UA) Urine Ketones Urine Blood Urine Nitrite Urine Bilirubin Urine Urobilinogen Ur Leukocyte Esterase Urine RBC Urine WBC Ur Epithelial Cells Urine Bacteria Urine Mucus Hepatitis C Antibody <0.1 08/04/16 08/04/16 08/04/16 09:15 09:15 11:00 WBC RBC Hgb Hct MCV MCHC RDW Plt Count MPV Neutrophils % Lymphocytes % Monocytes % Basophils % Myelocytes Differential Comment Platelet Estimate INR Sodium 136 Potassium 3.3 L D Chloride 96 L Carbon Dioxide 30 D Anion Gap 10 BUN 5 L D Creatinine 0.9 Creat Clearance w eGFR > 60 Random Glucose 110 H Hemoglobin A1c % 5.9 Calcium 7.7 L Magnesium 2.4 Total Bilirubin 12.9 H Direct Bilirubin AST 333 H ALT 252 H Alkaline Phosphatase 543 H Total Protein 5.0 L Albumin 2.0 L Urine Color Yasmine Urine Appearance Clear Urine pH 7.0 D Ur Specific [place] 1.016 Urine Protein 1+ H Urine Glucose (UA) Negative Urine Ketones Trace H Urine Blood 1+ H Urine Nitrite Negative Urine Bilirubin 4.0 Urine Urobilinogen 4.0 e.u/dl Ur Leukocyte Esterase Negative Urine RBC 1 Urine WBC 1 Ur Epithelial Cells Rare Urine Bacteria Rare Urine Mucus Rare Hepatitis C Antibody 08/04/16 18:11 WBC RBC Hgb Hct MCV MCHC RDW Plt Count MPV Neutrophils % Lymphocytes % Monocytes % Basophils % Myelocytes Differential Comment Platelet Estimate INR 1.28 H Sodium Potassium Chloride Carbon Dioxide Anion Gap BUN Creatinine Creat Clearance w eGFR Random Glucose Hemoglobin A1c % Calcium Magnesium Total Bilirubin Direct Bilirubin AST ALT Alkaline Phosphatase Total Protein Albumin Urine Color Urine Appearance Urine pH Ur Specific [place] Urine Protein Urine Glucose (UA) Urine Ketones Urine Blood Urine Nitrite Urine Bilirubin Urine Urobilinogen Ur Leukocyte Esterase Urine RBC Urine WBC Ur Epithelial Cells Urine Bacteria Urine Mucus Hepatitis C Antibody Problem List - Problems (1) GIB (gastrointestinal bleeding) Assessment/Plan: Follow CBC, GI f/u Code(s): K92.2 - GASTROINTESTINAL HEMORRHAGE, UNSPECIFIED Qualifiers: GI bleed type/associated pathology: melena Qualified Code(s): K92.1 - Melena (2) Acute alcoholic hepatitis Assessment/Plan: MRI not technically feasable LFT improving Hep studies negative Code(s): K70.10 - ALCOHOLIC HEPATITIS WITHOUT ASCITES (3) Paroxysmal atrial fibrillation Assessment/Plan: Hold OFF on A/C now due to GI bleed BAB for rate control Code(s): I48.0 - PAROXYSMAL ATRIAL FIBRILLATION (4) CHF (congestive heart failure), NYHA class II Assessment/Plan: ECHO noted-normal LV systolic fx. LAE. Mild O2NC Will hold off on diuretics now Code(s): I50.9 - HEART FAILURE, UNSPECIFIED Qualifiers: Congestive heart failure type: diastolic (5) Alcohol abuse Assessment/Plan: Thiamin ,B6, observe for DT , Code(s): F10.10 - ALCOHOL ABUSE, UNCOMPLICATED (6) Low back pain Assessment/Plan: R/O kidney stone. PT for low back pain Pain meds PRN. Code(s): M54.5 - LOW BACK PAIN Qualifiers: Chronicity: unspecified Back pain laterality: left
[2016-08-05] MEDS ORDERED: HYDROmorphone HCL CARPU-JECT 1 MG/1 ML DISP.SYRIN IVPB PRN (07:59)
[2016-08-05] MEDS ORDERED: POTASSIUM PHOSPHATE 30 MM in SODIUM CHLORIDE 250 ML IVPB ONE (08:01)
[2016-08-05 08:47] LABS: ALBUMIN 1.9 g/dl (3.4-5.0); ALK PHOS 493 U/L (45-117); ANION GAP 13 (8-16); BILIRUBIN,TOTAL 13.2 mg/dL (0.2-1.0); CALCIUM 8.1 mg/dL (8.5-10.1); CO2 30 mmol/L (21-32); COCKROFT - GAULT 144.37; CREATININE 0.9 mg/dL (0.7-1.3); GLUCOSE,RANDOM 103 mg/dL (74-106); SGPT/ALT 217 U/L (12-78)
[2016-08-05] MEDS: METOPROLOL TARTRATE 25 MG TABLET (FP) PO SCH ×2 (09:23→22:02)
[2016-08-05 09:38] LABS: SGOT/AST 257 U/L (15-37)
[2016-08-05 12:06] LABS: PLATELET ESTIMATE ADEQUATE (NORMAL)
[2016-08-05 17:55] LABS: INR 1.25 (0.82-1.09); PROTHROMBIN TIME (PATIENT) 13.8 SEC (9.98-11.88)
--- NOTE | 2016-08-05 18:44 | PN ---
GI Progress Note Subjective: Complains of feeling full and sweating after eating soup this evening No abdominal pain No acute events - Objective Vital Signs: Vital Signs Temperature 98.6 F 08/05/16 14:44 Pulse Rate 66 08/05/16 14:44 Respiratory Rate 20 08/05/16 14:44 Blood Pressure 133/76 08/05/16 14:44 O2 Sat by Pulse Oximetry (%) 96 08/05/16 09:00 Constitutional: Calm Eyes: Yes: Sclera Icterus Cardiovascular: Yes: Regular Rate and Rhythm, Murmur Respiratory: Yes: CTA Bilaterally Gastrointestinal Inspection: Yes: Distention (protuberant abdomen) ...Auscultate: Yes: Normoactive Bowel Sounds ...Palpate: No: Tenderness ...Percussion: No: Tympanitic Edema: Yes Neurological: Yes: Alert, Oriented. No: Asterixis Labs: CBC, BMP 08/05/16 06:00 08/05/16 06:00 INR, PTT INR 1.25 (0.82-1.09) H 08/05/16 17:05 Hepatic Panel Total Bilirubin 13.2 mg/dL (0.2-1.0) H 08/05/16 06:00 Direct Bilirubin 10.6 mg/dL (0.0-0.2) H* 08/04/16 06:00 AST 257 U/L (15-37) H D 08/05/16 06:00 ALT 217 U/L (12-78) H 08/05/16 06:00 Alkaline Phosphatase 493 U/L (45-117) H 08/05/16 06:00 Albumin 1.9 g/dl (3.4-5.0) L 08/05/16 06:00 Laboratory Tests 08/03/16 08/04/16 12:45 09:15 Hepatitis A Ab Total Pending Hep Bs Antigen Pending Hep Bs Antibody Pending Hep B Core Total Ab Pending Hepatitis C Antibody <0.1 Problem List - Problems (1) Acute alcoholic hepatitis Assessment/Plan: No change in mental status Labs stable with small rise in bilurubin today Monitor LFT's / coags Code(s): K70.10 - ALCOHOLIC HEPATITIS WITHOUT ASCITES
[2016-08-06 00:06] LABS: HEP B SURFACE AB Non Reactive (.)
[2016-08-06] MEDS: DEXTROSE 5%-1/3 NS - 500 ML IV SCH ×2 (03:25→10:22)
[2016-08-06 07:36] LABS: MCH 29.9 pg (25.7-33.7); MCHC 31.6 g/dl (32.0-35.9); MEAN CELL VOLUME 94.8 fl (80-96); MEAN PLT VOLUME 8.5 fl (7.5-11.1); PLATELET COUNT 188 K/MM3 (134-434); RDW 15.3 % (11.9-15.9); WHITE BLOOD COUNT 6.8 K/mm3 (4.0-10.0)
[2016-08-06 07:49] LABS: INR 1.35 (0.82-1.09); PROTHROMBIN TIME (PATIENT) 14.9 SEC (9.98-11.88)
[2016-08-06 08:13] LABS: BILIRUBIN,DIRECT 9.9 mg/dL (0.0-0.2); BILIRUBIN,TOTAL 11.9 mg/dL (0.2-1.0)
[2016-08-06 08:15] LABS: ANION GAP 11 (8-16); CALCIUM 7.7 mg/dL (8.5-10.1); CO2 30 mmol/L (21-32); GLUCOSE,RANDOM 110 mg/dL (74-106)
[2016-08-06 08:18] LABS: ALK PHOS 485 U/L (45-117); BILIRUBIN,TOTAL 12.2 mg/dL (0.2-1.0); COCKROFT - GAULT 144.37; CREATININE 0.9 mg/dL (0.7-1.3); PHOSPHOROUS 1.8 mg/dL (2.5-4.9); SGPT/ALT 196 U/L (12-78); TOT PROT 5.1 g/dl (6.4-8.2)
--- NOTE | 2016-08-06 08:19 | PN ---
Progress Note (short form) - Note Progress Note: Awake, alert, nad. c/O LEFT FLANK PAIN. NO WITHDRAWEL SYMPTOMS. Kidney [id number] left kidney stone Intake & Output 08/03/16 08/04/16 08/05/16 08/06/16 11:59 11:59 11:59 11:59 Intake Total 192 787 5002 Output Total 1200 600 Balance -341 313 7610 Weight 275 lb 275 lb Vital Signs Temp 98.8 F 08/06/16 06:30 Pulse 88 08/06/16 06:30 Resp 20 08/06/16 06:30 BP 137/79 08/06/16 06:30 Pulse Ox 96 08/05/16 21:00 Intake & Output 08/05/16 08/05/16 08/06/16 11:59 23:59 11:59 Intake Total 800 900 800 Balance 800 900 800 Intake: IV 300 400 800 D5-1/3Ns - 500 ml @ 100 300 400 800 mls/hr IV ASDIR JULIETH Rx#: [id number] IVPB 500 0 0 Oral 500 Other: Voiding Method Urinal Toilet # Unmeasured Voids Void 2 Bowel Movement Yes: 1 Neck-no JVD Lungs are clear. hEART s1s2 REGULAR Abdomen obese, NT No bladder distention Laboratory Results - last 24 hr 08/04/16 08/05/16 08/05/16 09:15 06:00 06:00 WBC RBC Hgb Hct MCV MCHC RDW Plt Count MPV Neutrophils % 67.0 Lymphocytes % 15.0 Monocytes % 9.0 Eosinophils % 4.0 Myelocytes 5 H D Nucleated RBCs 1 H Differential Comment Manual diff done Platelet Estimate Adequate INR Sodium 141 Potassium 3.3 L Chloride 98 Carbon Dioxide 30 Anion Gap 13 BUN 4 L Creatinine 0.9 Creat Clearance w eGFR > 60 Random Glucose 103 Calcium 8.1 L Phosphorus 2.0 L D Total Bilirubin 13.2 H GGT 4658 H AST 257 H D ALT 217 H Alkaline Phosphatase 493 H Total Protein 5.0 L Albumin 1.9 L Hep A IgM Ab Confirm Negative Hepatitis A Ab Total Positive H Hep Bs Antigen Negative Hep Bs Antibody Non reactive Hep B Core Total Ab Negative 08/05/16 08/06/16 08/06/16 17:05 06:00 06:00 WBC 6.8 RBC 4.22 Hgb 12.6 Hct 40.0 MCV 94.8 MCHC 31.6 L RDW 15.3 Plt Count 188 D MPV 8.5 Neutrophils % Y Lymphocytes % Y Monocytes % Eosinophils % Myelocytes Nucleated RBCs Differential Comment Platelet Estimate INR 1.25 H 1.35 H Sodium Potassium Chloride Carbon Dioxide Anion Gap BUN Creatinine Creat Clearance w eGFR Random Glucose Calcium Phosphorus Total Bilirubin GGT AST ALT Alkaline Phosphatase Total Protein Albumin Hep A IgM Ab Confirm Hepatitis A Ab Total Hep Bs Antigen Hep Bs Antibody Hep B Core Total Ab Current Active Problems Problem Status Diagnosed Acute alcoholic hepatitis Acute Alcohol abuse Acute CHF (congestive heart failure), NYHA class II Acute Elevated bilirubin Acute GIB (gastrointestinal bleeding) Acute Low back pain left kidney stone Acute Paroxysmal atrial fibrillation Acute Transaminitis Acute Plan Small amount PRN Naprosyn and observe labs IV fluids. Replete electrolytes. Problem List - Problems (1) GIB (gastrointestinal bleeding) Code(s): K92.2 - GASTROINTESTINAL HEMORRHAGE, UNSPECIFIED Qualifiers: GI bleed type/associated pathology: melena Qualified Code(s): K92.1 - Melena (2) Acute alcoholic hepatitis Code(s): K70.10 - ALCOHOLIC HEPATITIS WITHOUT ASCITES (3) Paroxysmal atrial fibrillation Code(s): I48.0 - PAROXYSMAL ATRIAL FIBRILLATION (4) CHF (congestive heart failure), NYHA class II Code(s): I50.9 - HEART FAILURE, UNSPECIFIED Qualifiers: Congestive heart failure type: diastolic (5) Alcohol abuse Code(s): F10.10 - ALCOHOL ABUSE, UNCOMPLICATED (6) Low back pain Code(s): M54.5 - LOW BACK PAIN Qualifiers: Chronicity: unspecified Back pain laterality: left
[2016-08-06 08:24] LABS: SGOT/AST 239 U/L (15-37)
[2016-08-06] MEDS ORDERED: PHYTONADIONE 5 MG TABLET PO ONE (08:30)
[2016-08-06] MEDS ORDERED: POTASSIUM CHLORIDE ORAL LIQUID 20 MEQ/15 ML PO ONE (08:30)
[2016-08-06] MEDS ORDERED: POTASSIUM PHOSPHATE 30 MM in DEXTROSE 5%-WATER - 250 ML IVPB ONE (08:45)
[2016-08-06] MEDS ORDERED: POTASSIUM PHOSPHATE 30 MM in DEXTROSE 5%-WATER - 500 ML IVPB ONE (08:48)
[2016-08-06] MEDS: METOPROLOL TARTRATE 25 MG TABLET (FP) PO SCH ×3 (10:20→21:33)
[2016-08-06 11:37] LABS: ANISOCYTOSIS 1+; METAMYELOCYTE 1 % (0-2); PLATELET ESTIMATE ADEQUATE (NORMAL); POLYCHROMASIA 1+; STOMATOCYTE 4+
[2016-08-06] MEDS ORDERED: PT OWN MED DRAWER 7, Y5N ONE (13:10)
--- NOTE | 2016-08-06 13:33 | EKG ---
Test Reason : Blood Pressure : / mmHG Vent. Rate : 092 BPM Atrial Rate : 092 BPM P-R Int : 156 ms QRS Dur : 112 ms QT Int : 376 ms P-R-T Axes : 022 -71 038 degrees QTc Int : 464 ms NORMAL SINUS RHYTHM LEFT ANTERIOR FASCICULAR BLOCK ABNORMAL ECG WHEN COMPARED WITH ECG OF 04-AUG-2016 08:34, NO SIGNIFICANT CHANGE WAS FOUND Confirmed by MARY JO ROWLEY, LENIN ([id number]) on 08/06/2016 1:33:26 PM Referred By: Brian SERRANO Confirmed By:LENIN CAMARGO MD
[2016-08-06] MEDS: NAPROXEN 250 MG TABLET (FP) PO PRN (14:43)
[2016-08-07] MEDS: DEXTROSE 5%-1/3 NS - 500 ML IV SCH ×2 (01:29→06:30)
[2016-08-07] MEDS ORDERED: PT OWN MED DRAWER 7, Y5N ONE (06:35)
[2016-08-07] MEDS: NAPROXEN 250 MG TABLET (FP) PO PRN ×2 (06:42→13:35)
[2016-08-07 07:44] LABS: ALBUMIN 2.2 g/dl (3.4-5.0); ANION GAP 11 (8-16); CALCIUM 8.3 mg/dL (8.5-10.1); CO2 27 mmol/L (21-32); GLUCOSE,RANDOM 106 mg/dL (74-106)
[2016-08-07 07:49] LABS: ALK PHOS 500 U/L (45-117); COCKROFT - GAULT 129.93; SGOT/AST 201 U/L (15-37); SGPT/ALT 182 U/L (12-78); TOT PROT 5.5 g/dl (6.4-8.2)
[2016-08-07] MEDS ORDERED: POTASSIUM CHLORIDE TABS 20 MEQ TABLET.ER (FP) PO ONE (08:17)
--- NOTE | 2016-08-07 08:21 | PN ---
Progress Note, Physician Chief Complaint: C/o sweating, back pain.Tolerates PO. Noted URINE C&S 10-20 K GN and GP organisms?-contamination. Leuk kely -neg x2, WBC 1-5 Pt feels much better and is asking about going home. History of Present Illness: Paroxysmal Afib, last seen in the office 06/18/15 when he was in [place]. Binge drinking in the past. HTN. LV CHF-mostly diastolic. Obesity. Kidney stones. - Current Medication List Current Medications: Active Medications Dextrose/Sodium Chloride (D5-1/3ns -) 500 mls @ 100 mls/hr IV ASDIR JULIETH Last Admin: 08/07/16 06:30 Dose: 100 mls/hr Potassium Phosphate 30 mm/ (Dextrose) 260 mls @ 62.5 mls/hr IVPB ONCE ONE Stop: 08/07/16 12:25 Metoprolol Tartrate (Lopressor -) 25 mg PO BID [facility] Last Admin: 08/06/16 21:33 Dose: 25 mg Naproxen (Naprosyn -) 250 mg PO BID PRN PRN Reason: BACK PAIN Last Admin: 08/07/16 06:42 Dose: 250 mg Potassium Chloride (K-Dur -) 40 meq PO ONCE ONE Stop: 08/07/16 08:18 - Objective Vital Signs: Vital Signs Temperature 98.1 F 08/07/16 06:00 Pulse Rate 86 08/07/16 06:00 Respiratory Rate 20 08/07/16 06:00 Blood Pressure 146/78 08/07/16 06:00 O2 Sat by Pulse Oximetry (%) 100 08/06/16 21:00 Constitutional: Yes: Anxious, Mild Distress, Obese Eyes: Yes: Conjunctiva Clear, EOM Intact, Sclera Icterus HENT: Yes: Normocephalic. No: Drooling Neck: Yes: Supple, Trachea Midline Cardiovascular: Yes: Regular Rate and Rhythm (EKG-ST). No: Bradycardia, Tachycardia Respiratory: Yes: Regular, CTA Bilaterally Gastrointestinal: Yes: Normal Bowel Sounds, Soft, Abdomen, Obese. No: Palpable Mass ...Rectal Exam: Yes: Deferred Genitourinary: No: Anuria, Bladder Distention Breast(s): Yes: WNL Musculoskeletal: Yes: Back Pain Extremities: No: Amputation, Calf Tenderness, Cold, Cyanosis Edema: No Peripheral Pulses WNL: No Neurological: Yes: WNL, Alert, Oriented. No: Aphasia, Asterixis ...Motor Strength: WNL Labs: CBC, BMP 08/06/16 06:00 08/07/16 06:00 INR, PTT INR 1.35 (0.82-1.09) H 08/06/16 06:00 Problem List - Problems (1) Acute alcoholic hepatitis Assessment/Plan: Improved-probably superimposed on WARD Code(s): K70.10 - ALCOHOLIC HEPATITIS WITHOUT ASCITES (2) Paroxysmal atrial fibrillation Assessment/Plan: Remains in SR Hold OFF on A/C now due to GI bleed BAB for rate control Code(s): I48.0 - PAROXYSMAL ATRIAL FIBRILLATION (3) CHF (congestive heart failure), NYHA class II Assessment/Plan: ECHO noted-normal LV systolic fx. LAE. Mild Code(s): I50.9 - HEART FAILURE, UNSPECIFIED Qualifiers: Congestive heart failure type: diastolic (4) Alcohol abuse Assessment/Plan: ETOH rehab inpt discussed with pt and GI. Pt is agreeble. Code(s): F10.10 - ALCOHOL ABUSE, UNCOMPLICATED (5) Low back pain Assessment/Plan: Left6 kidney stone. PT for low back pain Pain meds PRN. Code(s): M54.5 - LOW BACK PAIN Qualifiers: Chronicity: unspecified Back pain laterality: left
[2016-08-07 08:27] LABS: INR 1.28 (0.82-1.09); PROTHROMBIN TIME (PATIENT) 14.2 SEC (9.98-11.88)
[2016-08-07] MEDS ORDERED: POTASSIUM PHOSPHATE 30 MM in DEXTROSE 5%-WATER - 500 ML IVPB ONE (08:30)
--- NOTE | 2016-08-07 08:41 | DS ---
Physical Examination Vital Signs: Vital Signs Temperature 98.4 F 08/07/16 08:25 Pulse Rate 87 08/07/16 08:25 Respiratory Rate 20 08/07/16 08:25 Blood Pressure 128/82 08/07/16 08:25 O2 Sat by Pulse Oximetry (%) 100 08/06/16 21:00 Constitutional: Yes: No Distress, Calm Eyes: Yes: EOM Intact, Sclera Icterus HENT: Yes: Atraumatic, Normocephalic Neck: Yes: Supple, Trachea Midline Cardiovascular: Yes: Regular Rate and Rhythm, Tachycardia Respiratory: Yes: Regular, CTA Bilaterally Gastrointestinal: Yes: Normal Bowel Sounds, Soft, Abdomen, Obese ...Rectal Exam: Yes: Deferred Renal/: No: Anuria, Bladder Distention, CVA Tenderness - Left, CVA Tenderness - Right Musculoskeletal: Yes: WNL Extremities: Yes: WNL Edema: No Peripheral Pulses WNL: Yes Integumentary: Yes: WNL Neurological: Yes: Alert, Oriented. No: Aphasia, Asterixis, Ataxia, Dysarthria , Seizure, Unsteady Gait, Weakness ...Motor Strength: WNL Psychiatric: Yes: WNL Labs: CBC, BMP 08/06/16 06:00 08/07/16 06:00 Discharge Summary Reason For Visit: ELEV TRANSAMINASE DENISSE,GASTROINT HEMORRHAGE, Current Active Problems Acute alcoholic hepatitis (Acute) Alcohol abuse (Acute) CHF (congestive heart failure), NYHA class II (Acute) Elevated bilirubin (Acute) Low back pain (Acute) Paroxysmal atrial fibrillation (Acute) Transaminitis (Acute) - Instructions Referrals: Addy Haney MD [Primary Care Provider] - Disposition: TRANSFER ACUTE CARE/OTHER HOSP - Home Medications Comprehensive Discharge Medication List: Ambulatory Orders Unobtainable [Unobtainable] 08/03/16
[2016-08-07] MEDS: METOPROLOL TARTRATE 25 MG TABLET (FP) PO SCH (09:43)
[2016-08-07 12:55] LABS: URINE APPEARANCE CLEAR; URINE BLOOD NEGATIVE (NEGATIVE); URINE COLOR AMBER; URINE GLUCOSE (UA) NEGATIVE (NEGATIVE); URINE KETONE NEGATIVE (NEGATIVE); URINE LEUK ESTERASE NEGATIVE (NEGATIVE); URINE NITRITE NEGATIVE (NEGATIVE); URINE UROBILINOGEN 4.0 E.U/dl E.U./dl (0.2-1.0)
[2016-08-07 13:01] LABS: URINE MUCUS RARE; URINE PROTEIN 1+ (NEGATIVE); URINE RBC 4 /hpf (0-3); URINE WBC 1 /hpf (3-5)
[2016-08-07 14:04] VITALS: BP 122/78; PULSE 86; TEMP 98.8
== END 2016-08-07 15:50 | disposition home or self-care (01) | DRG 433 ==
LOC: JER 11:18 → JERBED 14:24 → J7W 16:25
PROVIDERS: ADMIT Internal Medicine; ATTEND Internal Medicine
DX: K70.10 Alcoholic hepatitis without ascites (principal); I50.30 Unspecified diastolic (congestive) heart failure; Z68.42 Body mass index [BMI] 45.0-49.9, adult; K92.2 Gastrointestinal hemorrhage, unspecified; I48.0 Paroxysmal atrial fibrillation; I11.0 Hypertensive heart disease with heart failure; E66.9 Obesity, unspecified; Z71.3 Dietary counseling and surveillance; R10.84 Generalized abdominal pain; R11.2 Nausea with vomiting, unspecified; E78.00 Pure hypercholesterolemia, unspecified; F10.10 Alcohol abuse, uncomplicated; K76.0 Fatty (change of) liver, not elsewhere classified; N20.0 Calculus of kidney
CPT/HCPCS: 36415; 71010-TC; 74177-TC; 76705-TC; 76775-TC; 80048; 80053; 80076; 80307; 81003; 81015; 82009; 82248; 82272; 82550; 82553; 82607; 82746; 82803; 82977; 83036; 83690; 83735; 84100; 84484; 85025; 85027; 85610; 85730; 86704; 86706; 86708; 87086; 87186; 87340; 93005; 93010; 93306-TC; 97116-GP; 97162-PG; 99283-25